=== PATIENT | female | born 1995 ===

== ENCOUNTER → 2017-05-28 | Outpatient (CLI) | payer SELFPAY ==
--- NOTE | 2017-05-28 13:58 | Diagnostic Imaging Report ---
INDICATION: Pelvic pain TECHNIQUE: Multiple real time lyons scale sonographic images were obtained of the pelvis transabdominally. CORRELATION STUDY: None FINDINGS: UTERUS/ENDOMETRIUM: Uterus measures 6.6 x 4.2 x 3.3 cm. Endometrial thickness is 4 mm. The uterus and endometrium appearing unremarkable. RIGHT OVARY: 3.3 x 2.4 x 1.6 cm. LEFT OVARY: 3.8 x 2.8 x 1.6 cm. A few small likely physiologic cysts and follicles are present. Vascular flow is demonstrated to both ovaries. No significant free pelvic fluid. IMPRESSION: 1. Unremarkable appearing pelvic ultrasound examination. Dictated by: Dictated on workstation # [id number]
== END ==
LOC: RAD 13:01
PROVIDERS: ATTEND Nurse Practitioner Family
DX: R10.2 Pelvic and perineal pain (principal)
CPT/HCPCS: 76856

== ENCOUNTER → 2020-09-04 | Outpatient (CLI) | payer SELFPAY ==
[~2020-09-04] MED LIST: LIDOCAINE 1% INJ 20 ML 20 ML VIAL INJ ONE
--- NOTE | 2020-09-04 14:30 | Diagnostic Imaging Report ---
INDICATION: Right breast biopsy with ultrasound. This study is performed to evaluate clip placement. FINDINGS: Unilateral right 2D CC and ML mammography was performed. There is a clip in the upper and inner aspect of the right breast post-ultrasound biopsy. IMPRESSION: Clip placement, as described. Dictated by: Dictated on workstation # [id number]
--- NOTE | 2020-09-04 14:35 | Diagnostic Imaging Report ---
Indication: Right breast mass. Patient presents for biopsy. Patient brought to the sonographic suite and placed on table in the supine position. Ultrasound imaging of the right breast was performed to evaluate appropriate entry site. Right breast was then prepped and draped in usual sterile fashion. Small amount of 1% lidocaine was utilized for local anesthesia. A total of 3 passes were made into the irregular regions of hypoechogenicity at the 12:00 location of the right breast, 2 cm from the nipple utilizing 14-gauge achieve needle. Core specimens were obtained. A marker clip was then deployed. Needle was removed and hemostasis was obtained. Patient tolerated the procedure well and left the department in stable condition. IMPRESSION: Successful ultrasound-guided core biopsy of irregular region of hypoechogenicity at the 12:00 location right breast. Pathology results are currently pending. Dictated by: Dictated on workstation # [id number]
== END ==
LOC: RAD 13:00 → EDBD 13:00
PROVIDERS: ATTEND Nurse Practitioner Family
DX: N63.15 Unspecified lump in the right breast, overlapping quadrants (principal)
CPT/HCPCS: 19083; 77065; G0279

== ENCOUNTER → 2020-11-29 | Outpatient (CLI) | payer OTHER ==
[~2020-11-29] MED LIST changes: +ACHD5005 PO; +DOCU-143 PO; -LIDOCAINE 1% INJ 20 ML 20 ML VIAL INJ ONE; +SULF1TAB38 PO
--- NOTE | 2020-11-29 15:04 | Diagnostic Imaging Report ---
INDICATION: Right breast pain, swelling, erythema. COMPARISON: None. FINDINGS: The right breast appears edematous with several fluid collections present. There is an area of increased vascularity and fluid measuring 3 cm. This likely represents a diffuse infectious process with abscesses. IMPRESSION: Several fluid collections with diffuse edema concerning for abscess. Follow-up is recommended. BI-RADS Category 3. ACR BI-RADS Category 3: Probably benign findings. Result letter will be mailed to the patient. Note: At least 10% of breast cancer is not imaged by mammography. Dictated by: Dictated on workstation # [id number]
== END ==
LOC: RAD 13:00
PROVIDERS: ATTEND Surgery
DX: N61.1 Abscess of the breast and nipple (principal)

== ENCOUNTER 2020-12-02 10:32 | Day surgery (SDC) | payer OTHER ==
[~2020-12-02] VITALS: Ht 152 cm; Wt 62.7 kg
[2020-12-02] VITALS (10 sets, daily range): BP systolic 100–125; BP diastolic 66–86
[2020-12-02] MEDS ORDERED: fentaNYL INJ 100 MCG/2 ML AMP ONE (10:54)
[2020-12-02] MEDS ORDERED: ONDANSETRON 4 MG/2 ML (SDV) Z0FRAN ONE (10:54)
[2020-12-02] MEDS ORDERED: proPOfol 200 MG/20 ML (DIPRIVAN) VIAL IV ONE (10:54)
[2020-12-02] MEDS ORDERED: SEVOFLURANE (ULTANE) 15 ML INHAL SOLN ONE ×2 (10:54→12:50)
[2020-12-02] MEDS ORDERED: LIDOCAINE PF 2% 5 ML (XYLOCAINE) VIAL ONE (10:54)
[2020-12-02] MEDS ORDERED: MIDAZOLAM 2 MG/2 ML (VERSED) VIAL ONE (10:55)
[2020-12-02] MEDS: LACTATED RINGERS 1,000 ML IV PRN ×2 (11:43→12:59)
[2020-12-02] MEDS ORDERED: ceFAZolin INJECTION 1,000 MG ONE (12:12)
--- NOTE | 2020-12-02 12:13 | Progress Note-Pre Operative ---
Pre-Operative Progress Note H&P Reviewed The H&P was reviewed, patient examined and no changes noted. Date Seen by Provider: Dec 02, 2020 Time Seen by Provider: 12:13 Date H&P Reviewed: Dec 02, 2020 Time H&P Reviewed: 12:13 Pre-Operative Diagnosis: right breast abscess ISA WOODRUFF DO Dec 02, 2020 12:13
[2020-12-02] MEDS ORDERED: ceFAZolin INJECTION 1,000 MG in WATER (STERILE) FOR INJECTION 10 ML IV ONE (12:15)
[2020-12-02] MEDS ORDERED: HYDROmorphone 2 MG/ML VIAL (DILAUDID) ONE (12:44)
[2020-12-02] MEDS ORDERED: KETOROLAC 30 MG/ML VIAL ONE (12:49)
--- NOTE | 2020-12-02 13:06 | Anesthesia-General Post-Op ---
General Patient Condition Mental Status/LOC: Same as Preop Cardiovascular: Satisfactory Nausea/Vomiting: Absent Respiratory: Satisfactory Pain: Controlled Complications: Absent Post Op Complications Complications None Follow Up Care/Instructions Patient Instructions None needed. Anesthesia/Patient Condition Patient Condition Patient is doing well, no complaints, stable vital signs, no apparent adverse anesthesia problems. No complications reported per nursing. D/C home per [facility] Criteria: Yes ERNESTO MARTINS CRNA Dec 02, 2020 13:06
[2020-12-02] MEDS ORDERED: HYDROmorphone 2 MG/ML VIAL (DILAUDID) IV ONE (13:15)
[2020-12-02] MEDS ORDERED: ONDANSETRON 4 MG/2 ML (SDV) Z0FRAN IVP PRN (13:15)
[2020-12-02] MEDS ORDERED: ACHD5005 PO (14:09)
[2020-12-02] MEDS ORDERED: DOCU-143 PO (14:09)
[2020-12-02] MEDS ORDERED: SULF1TAB38 PO (14:09)
--- NOTE | 2020-12-02 14:11 | Discharge Inst-Simple/Standard ---
Discharge Inst-Standard Discharge Medications New, Converted or Re-Newed RX: Transmitted to Pharmacy Patient Instructions/Follow Up Plan of Care/Instructions/FU: Katya office tomorrow for packing change daily. Activity as Tolerated: Yes Discharge Diet: Regular Diet Other Inst to Patient Follow up Appt: Make appointment for tomorrow Dr. Aldana office for dressing change. Irrigate and pack with iodoform daily. Instructions: No lifting greater than 10 pounds. No strenuous activity. May shower in 24 hours, no tub bath or soaking. Use incentive spirometer at home as directed. No Smoking Skin/Wound Care: Wound care daily in Dr. Aldana office. Symptoms to Report: Appetite Changes, Extremity Discoloration, Numbness/Tingling, Swelling Increased, Bleeding Excessive, Eyesight Changes, Pain Increased, Urine Color Change, Constipation(Persistent), Fever over 101 degree F, Pain/Pressure in chest, Urinating Difficulty, Cough Up/Vomit Blood, Heart Beat Irreg/Pounding, Pain/Pressure in jaw, Vaginal Bleeding Increase, Cramps in feet or legs, Lightheadedness, Pain/Pressure in shoulder, Diarrhea(Persistent), Memory Changes Suddenly, Questions/Concerns, Weight gain consecutive days, Dizziness/Fainting, Nausea/Vomiting, Shortness of Breath, Weight gain over 2 pounds If questions or concerns contact your physician Or seek help at emergency department. ISA ALDANA DO Dec 02, 2020 14:11
[2020-12-02] MEDS ORDERED: HYDROcodone/APAP 5 MG/325 MG (LORTAB) TAB ONE (14:41)
[2020-12-02] MEDS ORDERED: HYDROcodone/APAP 5 MG/325 MG (LORTAB) TAB PO ONE (14:45)
--- NOTE | 2020-12-03 07:04 | OPERATIVE REPORT ---
DATE OF SERVICE: 12/02/2020 PREOPERATIVE DIAGNOSIS: Right breast abscess. POSTOPERATIVE DIAGNOSIS: Right breast abscess. PROCEDURE: Right breast incision and drainage and excisional biopsy approximately 3 cm of the right breast with overall dimensions of abscess cavity 7 x 8.5 cm. SURGEON: Khadar Aldana DO ANESTHESIA: General. ESTIMATED BLOOD LOSS: Minimal. COMPLICATIONS: None. INDICATIONS: The patient is a 24-year-old female who has been having breast tissues for approximately 5 months. She is having breast pain and drainage from the right breast. She had ultrasound on Wednesday, which demonstrated the appearance of a chronic complex abscess to the right breast. The patient understands risks and benefits of procedure and wished to proceed. Consent was signed in the chart. DESCRIPTION OF PROCEDURE: The patient was taken to the operating suite. She was prepped and draped in sterile fashion. Timeout was performed. An elliptical incision was made over the right breast around a slight area of fluctuance in the skin. The skin was removed. Then encountered a significantly hard reactive breast tissue. Cautery was used to start dissecting down through this extremely indurated area and no significant change was present. There was a small opening in the skin just medial to this area that was already opened. Therefore, the incision was extended to this area for a small amount of purulent material was coming from this. Once this was opened, a culture was obtained. Just had a very small pocket present. The cautery was then used to continue to dissect down into the deeper breast tissue when larger pocket of purulent material was opened and another culture was obtained. This was also around harder area of reactive chronic inflammatory change tissue. This was grasped with an Allis and cautery was used to remove approximately 3 cm portion of the tissue for specimen. This was going on the larger pocket towards the inferior aspect was opened and more significant purulent material erupted as well. A large pocket measuring 7 x 8.5 cm was present. Once we completed, opened up all the pockets that we could find. The wound was then irrigated with copious amounts of irrigation. Hemostasis was achieved. The wound was then packed with 1-inch iodoform gauze. A sterile bandage was applied. The patient tolerated procedure well without any complications. She was taken to recovery room in stable condition. RECOMMENDATIONS: The patient will need daily irrigation and packing. The patient will follow up in my office tomorrow to have a nurse check and also for wound care. If patient cannot have someone help her at home, office nurses can help her. We will arrange for her to continue the dressing changes in the office and in the hospital. CC: Dr. Goff at [facility] - requested, unable to deliver Job ID: [id number] DocumentID: [id number] Dictated Date: 12/02/2020 21:49:12 Hydraulic Lift Driver Date: 12/03/2020 07:04:29 Dictated By: DO BRYANNA JIMENEZ
== END 2020-12-02 15:00 | disposition home or self-care (01) ==
LOC: SDC 10:32
PROVIDERS: ATTEND Surgery
DX: N61.1 Abscess of the breast and nipple (principal); N64.4 Mastodynia; Z83.3 Family history of diabetes mellitus
CPT/HCPCS: 84703; 87070; 87075; 87081; 87205; 88305; 88312

== ENCOUNTER 2021-01-05 09:05 | Outpatient (RCR) | payer OTHER ==
[2020-12-07 09:10] VITALS: BP 110/76
[2020-12-08 09:00] VITALS: BP 113/71
[2020-12-14 10:13] VITALS: BP 123/78
[2020-12-15 10:22] VITALS: BP 109/73
[2020-12-21 12:28] VITALS: BP 108/74
[2020-12-22 09:22] VITALS: BP 103/67
[2020-12-28 18:52] VITALS: BP 116/66
[2020-12-29 09:06] VITALS: BP 114/73
[2021-01-04 10:17] VITALS: BP 112/80
[~2021-01-05] VITALS: Ht 164.5 cm; Wt 62.7 kg
[2021-01-05 09:05] VITALS: BP 105/76
== END 2021-01-05 11:00 | disposition home or self-care (01) ==
LOC: SDC 09:05
PROVIDERS: ATTEND Surgery
DX: Z48.01 Encounter for change or removal of surgical wound dressing (principal); N61.1 Abscess of the breast and nipple
CPT/HCPCS: 99212

== ENCOUNTER 2021-03-26 13:45 | Outpatient (CLI) | payer OTHER ==
[~2021-03-26] VITALS: Ht 60 cm; Wt 60.0 kg
[2021-03-27] MEDS ORDERED: CLIN-144 PO (14:08)
[2021-03-27] MEDS ORDERED: ACHD5005 PO (14:08)
== END 2021-03-26 17:26 | disposition home or self-care (01) ==
LOC: PREOP 13:45
PROVIDERS: ATTEND Surgery
DX: Z01.818 Encounter for other preprocedural examination (principal)

== ENCOUNTER 2021-03-27 10:04 | Day surgery (SDC) | payer OTHER ==
[2021-03-27] VITALS (11 sets, daily range): BP systolic 100–125; BP diastolic 62–86
[~2021-03-27] VITALS: Ht 147.3 cm; Wt 60.0 kg
[2021-03-27] MEDS ORDERED: LACTATED RINGERS 1,000 ML IV PRN (10:15)
[2021-03-27] MEDS ORDERED: ceFAZolin INJECTION 1,000 MG VIAL IV ONE (10:15)
[2021-03-27] MEDS ORDERED: LIDOCAINE/EPI 2% 1:100,00 (XYLOCAINE) 20 ML VIAL ONE (10:49)
[2021-03-27] MEDS ORDERED: LIDOCAINE/EPI 1%-1:200,000 (XYLOCAINE) 30 ML VIAL ONE (10:50)
[2021-03-27] MEDS ORDERED: fentaNYL INJ 100 MCG/2 ML AMP ONE (11:39)
[2021-03-27] MEDS ORDERED: MIDAZOLAM 2 MG/2 ML (VERSED) VIAL ONE (11:39)
[2021-03-27] MEDS ORDERED: proPOfol 200 MG/20 ML (DIPRIVAN) VIAL IV ONE (11:39)
[2021-03-27] MEDS ORDERED: ONDANSETRON 4 MG/2 ML (SDV) Z0FRAN ONE (11:39)
[2021-03-27] MEDS ORDERED: LIDOCAINE PF 2% 5 ML (XYLOCAINE) VIAL ONE (11:39)
--- NOTE | 2021-03-27 11:47 | Progress Note-Pre Operative ---
Pre-Operative Progress Note H&P Reviewed The H&P was reviewed, patient examined and no changes noted. Date Seen by Provider: Mar 27, 2021 Time Seen by Provider: 11:46 Date H&P Reviewed: Mar 27, 2021 Time H&P Reviewed: 11:46 Pre-Operative Diagnosis: right breast abscess ISA WOODRUFF DO Mar 27, 2021 11:47
[2021-03-27] MEDS ORDERED: SEVOFLURANE (ULTANE) 15 ML INHAL SOLN ONE (12:15)
--- NOTE | 2021-03-27 12:27 | Anesthesia-General Post-Op ---
General Patient Condition Mental Status/LOC: Same as Preop Cardiovascular: Satisfactory Nausea/Vomiting: Absent Respiratory: Satisfactory Pain: Controlled Complications: Absent Post Op Complications Complications None Follow Up Care/Instructions Patient Instructions None needed. Anesthesia/Patient Condition Patient Condition Patient is doing well, no complaints, stable vital signs, no apparent adverse anesthesia problems. No complications reported per nursing. PRISCILLA CAUSEY CRNA Mar 27, 2021 12:27
[2021-03-27] MEDS ORDERED: morphine INJ 10 MG/ML 1ML (SYR OR VIAL) IVP ONE (12:30)
[2021-03-27] MEDS ORDERED: MEPERIDINE (DEMEROL) INJ 50 MG/ML IVP ONE (12:30)
[2021-03-27] MEDS ORDERED: ONDANSETRON 4 MG/2 ML (SDV) Z0FRAN IVP PRN (12:30)
[2021-03-27] MEDS ORDERED: HYDROcodone/APAP 5 MG/325 MG (LORTAB) TAB ONE (13:42)
[2021-03-27] MEDS ORDERED: HYDROcodone/APAP 5 MG/325 MG (LORTAB) TAB PO ONE (13:45)
[2021-03-27] MEDS ORDERED: ACHD5005 PO (14:08)
[2021-03-27] MEDS ORDERED: CLIN-144 PO (14:08)
--- NOTE | 2021-03-27 14:10 | Discharge Inst-Simple/Standard ---
Discharge Inst-Standard Discharge Medications New, Converted or Re-Newed RX: Transmitted to Pharmacy Patient Instructions/Follow Up Plan of Care/Instructions/FU: Katya nurse tomorrow for dressing change. Needs done daily. Katya 2 weeks. Activity as Tolerated: Yes Discharge Diet: Regular Diet Other Inst to Patient Follow up Appt: Make appointment for 2 week Katya Aldana nurse tomorrow. Need daily dressing changes. Instructions: No strenuous activity. May shower in 24 hours, no tub bath or soaking. Use incentive spirometer at home as directed. No Smoking Skin/Wound Care: Daily wound care need to irrigate and change dressing and as needed. Symptoms to Report: Appetite Changes, Extremity Discoloration, Numbness/Tingling, Swelling Increased, Bleeding Excessive, Eyesight Changes, Pain Increased, Urine Color Change, Constipation(Persistent), Fever over 101 degree F, Pain/Pressure in chest, Urinating Difficulty, Cough Up/Vomit Blood, Heart Beat Irreg/Pounding, Pain/Pressure in jaw, Vaginal Bleeding Increase, Cramps in feet or legs, Lighth eadedness, Pain/Pressure in shoulder, Diarrhea(Persistent), Memory Changes Suddenly, Questions/Concerns, Weight gain consecutive days, Dizziness/Fainting, Nausea/Vomiting, Shortness of Breath, Weight gain over 2 pounds If questions or concerns contact your physician Or seek help at emergency department. ISA ALDANA DO Mar 27, 2021 14:09
--- NOTE | 2021-03-27 22:26 | OPERATIVE REPORT ---
DATE OF SERVICE: 03/27/2021 PREOPERATIVE DIAGNOSIS: Right breast abscess. POSTOPERATIVE DIAGNOSIS: Right breast abscess. PROCEDURE: Incision and drainage and excision of abscess cavity, right breast 3 x 2.5 cm. SURGEON: Isa Aldana DO ANESTHESIA: General. ESTIMATED BLOOD LOSS: Minimal. COMPLICATIONS: None. INDICATIONS: The patient is a 24-year-old female with history of breast abscess that appears to be recurrent breast abscess superior to the area of previous. She understands risks and benefits of procedure and wishes to proceed. Consent was signed in the chart. DESCRIPTION OF PROCEDURE: The patient was taken to the operating suite. She was prepped and draped in sterile fashion. Timeout was performed. Local anesthetic was infiltrated. A 15-blade scalpel was used to make a small skin incision over the area of the palpable area. Dissection was taken down through the subcutaneous tissue where firm area was encountered. This was then began to be dissected around. Cautery got into this area, which demonstrated purulent-appearing material. Culture was obtained. Cautery was used to dissect around the abscess cavity, which overall measurements were 3 x 2.5 cm of breast tissue removed. The rest of the area appeared normal. No other palpable abnormality. It was then irrigated with copious amounts of irrigation. Hemostasis was achieved. The wound was then packed with iodoform. The area was then washed and dried and sterile bandage was applied. The patient was taken to recovery room in stable condition. Job ID: [id number] DocumentID: [id number] Dictated Date: 03/27/2021 19:11:42 Lumber Estimator Date: 03/27/2021 22:25:29 Dictated By: ISA ALDANA DO
== END 2021-03-27 14:34 ==
LOC: SDC 10:04
PROVIDERS: ATTEND Surgery
DX: N61.1 Abscess of the breast and nipple (principal)
CPT/HCPCS: 84703; 87070; 87075; 87081; 87205; 88304

== ENCOUNTER 2021-04-06 09:08 | Outpatient (RCR) | payer OTHER ==
[2021-03-29 10:15] VITALS: BP 117/75
[2021-03-30 10:00] VITALS: BP 128/84
[2021-04-05 09:39] VITALS: BP 115/74
[~2021-04-06] VITALS: Ht 149.9 cm; Wt 60.0 kg
[~2021-04-06 09:08] MED LIST changes: +CLIN-144 PO
[2021-04-06 09:15] VITALS: BP 105/68
== END 2021-04-07 | disposition home or self-care (01) ==
LOC: SDC 09:08
PROVIDERS: ATTEND Surgery
DX: N64.59 Other signs and symptoms in breast (principal)
CPT/HCPCS: 99212

== ENCOUNTER 2021-04-27 09:14 | Outpatient (RCR) | payer OTHER ==
[2021-04-12 09:05] VITALS: BP 124/71
[2021-04-13 09:15] VITALS: BP 113/70
[2021-04-19 09:20] VITALS: BP 120/68
[2021-04-20 09:20] VITALS: BP 120/68
[2021-04-26 09:16] VITALS: BP 114/77
[~2021-04-27] VITALS: Ht 152.4 cm; Wt 60.0 kg
[2021-04-27 09:15] VITALS: BP 120/82
== END 2021-05-05 | disposition home or self-care (01) ==
LOC: SDC 09:14
PROVIDERS: ATTEND Surgery
DX: N64.59 Other signs and symptoms in breast (principal)
CPT/HCPCS: 99212

== ENCOUNTER → 2021-07-03 | Outpatient (CLI) | payer OTHER ==
[~2021-07-03] MED LIST changes: +BARIUM for suspension 96% w/w (Vanilla Silq Medium Density) PO ONE; +BARIUM for suspension 98% w/w (Vanilla Silq High Density) PO ONE
--- NOTE | 2021-07-03 10:59 | Diagnostic Imaging Report ---
INDICATION: Throat inflammation. TECHNIQUE: Patient ingested effervescent crystals as well as thin and thick barium and imaging of esophagus was performed with multiple obliquities. A total of 0.6 minutes of fluoroscopic time was utilized. FINDINGS: Preliminary radiograph of the chest is unremarkable. The esophagus has a smooth contour. No mass or stricture is seen. No hiatal hernia or gastroesophageal reflux was demonstrated. IMPRESSION: Unremarkable esophagram. Dictated by: Dictated on workstation # [id number]
== END ==
LOC: RAD 09:15
PROVIDERS: ATTEND Pediatrics
DX: J02.9 Acute pharyngitis, unspecified (principal)
CPT/HCPCS: 74220